=== PATIENT | female | born 1985 | race Caucasian/White ===

== ENCOUNTER 2016-11-24 08:44 | Emergency (ER) | payer MEDICAID ==
[~2016-11-24] VITALS: Ht 162.6 cm; Wt 85.0 kg
[2016-11-24 08:47] VITALS: Ht 162.6 cm; Wt 85.0 kg
--- NOTE | 2016-11-24 10:08 | ERD ---
ER Documentation Chief Complaint Date/Time DATE: 11/24/16 TIME: 10:07 Chief Complaint SPOTTING WITH LOWER ABD PAIN , 11 WEEKS PREG , LMP 08/30/16 HPI Patient is a 31-year-old female, approximately 11 weeks , , presents emergency department for vaginal spotting and lower abdominal pain. Patient states that her pain started yesterday. Patient states she started having vaginal spotting at 4 AM today. Patient describes the pain to be localized to her suprapubic region. Patient denies any fevers, chills, nausea, vomiting, dysuria, frequency, urgency or diarrhea. 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 No recent travel. No sick contacts. Patient states her last menstrual period was on 08-30-16. ROS All systems reviewed and are negative except as per history of present illness. Medications Home Meds Active Scripts Acetaminophen* (Tylophen*) 500 Mg Capsule, 1 CAP PO Q6H Y for PAIN AND OR ELEVATED TEMP, #20 CAP Prov:LEE RENDON PA-C 11/24/16 Allergies Allergies: Coded Allergies: No Known Allergy (Unverified , 11/24/16) PMhx/Soc Medical and Surgical Hx: pt denies Medical Hx, pt denies Surgical Hx Hx Alcohol Use: No Hx Substance Use: No Hx Tobacco Use: No Smoking Status: Never smoker Physical Exam Vitals Vital Signs Date Time Temp Pulse Resp B/P Pulse Ox O2 Delivery O2 Flow Rate FiO2 11/24/16 12:44 98.2 78 18 144/67 99 Room Air 11/24/16 08:47 98.3 58 18 142/66 99 Physical Exam GENERAL: Well-developed, well-nourished female. Appears in no acute distress. HEAD: Normocephalic, atraumatic. EYES: Pupils are equally reactive bilaterally. EOMs grossly intact. No conjunctival erythema. ENT: Moist mucous membranes. No uvula deviation. No kissing tonsils. NECK: Supple. No meningismus. Normal range of motion of the neck. LUNG: Clear to auscultation bilaterally. No rhonchi, wheezing, rales or coarse breath sounds. HEART: Regular rate and rhythm. No murmurs, rubs or gallops. ABDOMEN: Soft, nontender, and nondistended. Positive bowel sounds in all four quadrants. No rebound tenderness, no guarding. (-) McBurney's point tenderness. No CVA tenderness. BACK: No midline tenderness. EXTREMITIES: Equal pulses bilaterally. No peripheral clubbing, cyanosis or edema. No unilateral leg swelling. NEUROLOGIC: Alert and oriented. Moving all four extremities without any difficulty. Normal speech. Steady gait. SKIN: Normal color. Warm and dry. No rashes or lesions. Result Diagram: 11/24/16 1010 Results 24 hrs Laboratory Tests Test 11/24/16 10:10 11/24/16 11:33 11/24/16 11:38 White Blood Count 12.810^3/ul Red Blood Count 4.7410^6/ul Hemoglobin 13.2g/dl Hematocrit 40.3% Mean Corpuscular Volume 85.0fl Mean Corpuscular Hemoglobin 27.8pg Mean Corpuscular Hemoglobin Concent 32.8g/dl Red Cell Distribution Width 14.8% Platelet Count 47248^3/UL Mean Platelet Volume 9.7fl Neutrophils % 75.7% Lymphocytes % 18.2% Monocytes % 3.8% Eosinophils % 1.3% Basophils % 0.5% Nucleated Red Blood Cells % 0.0/100WBC Neutrophils # 9.710^3/ul Lymphocytes # 2.310^3/ul Monocytes # 0.510^3/ul Eosinophils # 0.210^3/ul Basophils # 0.110^3/ul Nucleated Red Blood Cells # 0.010^3/ul Beta HCG, Quantitative 8720.0mIU/ml Bedside Urine pH (LAB) 5.5 6.0 Bedside Urine Protein (LAB) Negative Negative Bedside Urine Glucose (UA) Negative Negative Bedside Urine Ketones (LAB) Negative Negative Bedside Urine Blood 3+ 2+ Bedside Urine Nitrite (LAB) Negative Negative Bedside Urine Leukocyte Esterase (L 1+ Trace Procedures/MDM ED COURSE: The patient was stable throughout ED course. I kept the patient and/or family informed of laboratory and diagnostic imaging results throughout the ED course. DIAGNOSTIC IMAGING: Read by radiologist. DIAGNOSTIC IMAGING REPORT Patient: TIKI RIVERS : 1985 Age: 31 Sex: F MR #: [id number] DOS: 11/24/16 0957 Ordering MD: LEE RENDON PA-C Location: [facility] Room/Bed: PROCEDURE: US OB. CLINICAL INDICATION: , vaginal bleeding. TECHNIQUE: Transabdominal and transvaginal views of the pelvis are available for review. COMPARISON: No prior studies are available for comparison. FINDINGS: The uterus measures 11.1 x 5.3 x 6.0 cm. There is an irregular shape intrauterine gestational sac with a pole. There is no cardiac activity identified. There is a small subchorionic hemorrhage. Mean gestational sac size is 1.69 cm consistent with 6-kzrk-7-day gestation. [place]-rump length is 0.29 cm consistent with a 1-xxon-9-day gestation. The right ovary is not visualized. The left ovary measures 2.4 x 1.3 x 1.4 cm. There is a 4.7 x 2.4 x 3.4 cm left paraovarian unilocular cyst. There is no free fluid in the cul-de- sac. IMPRESSION: 1. Irregular shaped intrauterine gestational sac with a pole without cardiac activity. This measures an average of 6 weeks 1 day plus or minus 3 days. There is a small subchorionic hemorrhage. The possibility of an embryonic demise should be entertained. Continued surveillance with serial quantitative beta HCGs and follow-up ultrasound is suggested. 2. 4.7 x 2.4 x 3.4 cm left paraovarian unilocular cyst. Note: A call report was made to Lee Kenney Pa-C (Philip) on 11/24/2016 10:43 :33 AM. RPTAT: AACC Physician Alexis Date Time Electronically viewed and signed by Physician Alexis on 11/24/2016 10: 45 JH/ CC: LEE RENDON PA-C PROCEDURES: None. MEDICAL DECISION MAKING: This is a 31-year-old female, G4, P3, presents emergency department for vaginal spotting and suprapubic pain 1 day. Vital signs were reviewed. Patient was afebrile. Patient was hemodynamically stable. Patient's white count was noted to be 12.8. Likely due to status. Quantitative b-HCG was 8720. Patient was noted to be O+. RhoGam was not given. Pelvic US showed 1. Irregular shaped intrauterine gestational sac with a pole without cardiac activity. This measures an average of 6 weeks 1 day plus or minus 3 days. There is a small subchorionic hemorrhage. The possibility of an embryonic demise should be entertained. Continued surveillance with serial quantitative beta HCGs and follow-up ultrasound is suggested. 2. 4.7 x 2.4 x 3.4 cm left paraovarian unilocular cyst. Given these findings, the patient's presentation is most consistent with threatened vs demise and subchoronic hematoma. I have a much lower clinical concern for ectopic , ruptured ectopic , molar , incomplete , complete , missed , placental abruption, placental previa, vasa previa, uterine rupture, anembyronic . I discussed patient's laboratory findings and ultrasound findings with her at length. Patient understands at this time unable to rule out demise. Patient will to return to the emergency department and/or follow with her OB/ PASS WORKER for repeat beta-hCG and 48 hours. DISCHARGE: At this time, patient is stable for discharge and outpatient management. Patient given a copy of all imaging and blood work obtained today. I had a conversation at length with the patient about the concerns of vaginal bleeding during the 1st trimester of . Patient and/or family understands that her vaginal bleeding can be a normal finding or a sign of miscarriage. I have instructed the patient to follow-up with her OBGYN in 1-2 days for further monitoring including a repeat b-HCG level. I have instructed the patient to promptly return to the ER at any time for any new or worsening symptoms including increased pain, nausea, vomiting, continued bleeding, weakness, syncope or fever. The patient and/or family expressed understanding of and agreement with this plan. All questions were answered. Home care instructions were provided. Departure Diagnosis: Primary Impression: Vaginal bleeding in patient at less than 20 weeks ges... Additional Impression: Subchorionic hematoma Condition: Stable Patient Instructions: Bleeding During Early Referrals: COMMUNITY CLINICS YOU HAVE RECEIVED A MEDICAL SCREENING EXAM AND THE RESULTS INDICATE THAT YOU DO NOT HAVE A CONDITION THAT REQUIRES URGENT TREATMENT IN THE EMERGENCY DEPARTMENT. FURTHER EVALUATION AND TREATMENT OF YOUR CONDITION CAN WAIT UNTIL YOU ARE SEEN IN YOUR DOCTORS OFFICE WITHIN THE NEXT 1-2 DAYS. IT IS YOUR RESPONSIBILITY TO MAKE AN APPOINTMENT FOR FOLOW-UP CARE. IF YOU HAVE A PRIMARY DOCTOR --you should call your primary doctor and schedule an appointment IF YOU DO NOT HAVE A PRIMARY DOCTOR YOU CAN CALL OUR PHYSICIAN REFERRAL HOTLINE AT IF YOU CAN NOT AFFORD TO SEE A PHYSICIAN YOU CAN CHOSE FROM THE FOLLOWING [facility] [address] [facility] [address] [facility] [facility] [address] [facility] [address] [facility]. [facility] [address] [facility] [facility] [address] [facility]. [facility] YOU HAVE RECEIVED A MEDICAL SCREENING EXAM AND THE RESULTS INDICATE THAT YOU DO NOT HAVE A CONDITION THAT REQUIRES URGENT TREATMENT IN THE EMERGENCY DEPARTMENT. FURTHER EVALUATION AND TREATMENT OF YOUR CONDITION CAN WAIT UNTIL YOU ARE SEEN IN YOUR DOCTORS OFFICE WITHIN THE NEXT 1-2 DAYS. IT IS YOUR RESPONSIBILITY TO MAKE AN APPOINTMENT FOR FOLOW-UP CARE. IF YOU HAVE A PRIMARY DOCTOR --you should call your primary doctor and schedule and appointment IF YOU DO NOT HAVE A PRIMARY DOCTOR YOU CAN CALL OUR PHYSICIAN REFERRAL HOTLINE AT . IF YOU CAN NOT AFFORD TO SEE A PHYSICIAN YOU CAN CHOSE FROM THE FOLLOWING [facility]: [facility] [address] [place] [address] [facility] [address] [place] [address] [facility] [address] [place] [address] [employer]ER GAUGER [employer]PR[place] [address] [facility] [address] [place] [address] OFFICE FAX , ELDA [address] [place] [address] [address] [facility] [address] [facility] [place] [address] [address] MANLEY, HESHMAT [address] [facility], [address], [facility] [address] [address] PATRICIA, [facility] [address] [address], [place] [address] [facility] [address] [place] [address] [facility], [facility] [address] [address] SKINNER, THEODORE [address] [facility] [address] [address] MCCRARY, YAEL [address] [facility]. [address], [facility] [address] [address] [place], [facility] [address] [place], [place] [id number] Additional Instructions: Call your primary care doctor/ OBGYN TOMORROW for an appointment during the next 1-2 days.See the doctor sooner or return here if your condition worsens before your appointment time. LEE RENDON PA-C November 24, 2016 10:08
[2016-11-24 10:28] LABS: ADD SCAN DIFF NO
[2016-11-24 10:37] LABS: BASOPHIL # 0.1 10^3/ul (0.0-0.1); BASOPHILS % 0.5 % (0.0-2.0); EOSINOPHILS # 0.2 10^3/ul (0.0-0.5); EOSINOPHILS % 1.3 % (0.0-7.0); HEMATOCRIT 40.3 % (37.0-47.0); HEMOGLOBIN 13.2 g/dl (12.0-16.0); LYMPHOCYTES # 2.3 10^3/ul (0.8-2.9); LYMPHOCYTES % 18.2 % (15.0-51.0); MEAN CORPUSCULAR HEMOGLOBIN 27.8 pg (29.0-33.0); MEAN CORPUSCULAR HGB CONC 32.8 g/dl (32.0-37.0); MEAN PLATELET VOLUME 9.7 fl (7.4-10.4); MONOCYTE # 0.5 10^3/ul (0.3-0.9); MONOCYTES % 3.8 % (0.0-11.0); NEUTROPHIL # 9.7 10^3/ul (1.6-7.5); NEUTROPHILS % 75.7 % (39.0-77.0); PLATELET COUNT 558 10^3/UL (140-415); RED BLOOD COUNT 4.74 10^6/ul (4.20-5.40); RED CELL DISTRIBUTION WIDTH 14.8 % (11.5-14.5); WHITE BLOOD COUNT 12.8 10^3/ul (4.8-10.8)
--- NOTE | 2016-11-24 10:45 | RADRPT ---
PROCEDURE: US OB. CLINICAL INDICATION: , vaginal bleeding. TECHNIQUE: Transabdominal and transvaginal views of the pelvis are available for review. COMPARISON: No prior studies are available for comparison. FINDINGS: The uterus measures 11.1 x 5.3 x 6.0 cm. There is an irregular shape intrauterine gestational sac w ith a pole. There is no cardiac activity identified. There is a small subchorionic hemorrhag e. Mean gestational sac size is 1.69 cm consistent with 4-ubnc-0-day gestation. [place]-rump length i s 0.29 cm consistent with a 4-xljm-1-day gestation. The right ovary is not visualized. The left ova ry measures 2.4 x 1.3 x 1.4 cm. There is a 4.7 x 2.4 x 3.4 cm left paraovarian unilocular cyst. The re is no free fluid in the cul-de-sac. IMPRESSION: 1. Irregular shaped intrauterine gestational sac with a pole without cardiac activity. This m easures an average of 6 weeks 1 day plus or minus 3 days. There is a small subchorionic hemorrhage. The possibility of an embryonic demise should be entertained. Continued surveillance with serial q uantitative beta HCGs and follow-up ultrasound is suggested. 2. 4.7 x 2.4 x 3.4 cm left paraovarian unilocular cyst. Note: A call report was made to Angel Kenney Pa-C (Philip) on 11/24/2016 10:43:33 AM. RPTAT: AACC Physician Alexis Date Time Electronically viewed and signed by Physician Alexis on 11/24/2016 10:45 /
[2016-11-24 11:31] LABS: URINE BLOOD (Dip) POC 3+ (NEGATIVE)
[2016-11-24 11:37] LABS: URINE BLOOD (Dip) POC 2+ (NEGATIVE)
[2016-11-24] MEDS ORDERED: ACET500C5 PO (12:03)
[2016-11-24 12:44] VITALS: BP 144/67; PULSE 78; RESP 18; TEMP 98.2
== END 2016-11-24 12:45 | disposition home or self-care (01) ==
LOC: FTE 08:44
DX: O20.9 Hemorrhage in early pregnancy, unspecified (principal); O36.8910 Maternal care for other specified fetal problems, first trimester, not applicable or unspecified; Z3A.11 11 weeks gestation of pregnancy
CPT/HCPCS: 36415; 76801; 76817; 81003; 84702; 85025; 86900; 86901; Z7502

== ENCOUNTER 2016-11-26 07:39 | Emergency (ER) | payer MEDICAID ==
[~2016-11-26] VITALS: Ht 157.5 cm; Wt 78.5 kg
[~2016-11-26 07:39] MED LIST: ACET500C5 PO
[2016-11-26 07:50] VITALS: Ht 157.5 cm; Wt 78.5 kg
[2016-11-26 08:31] LABS: ADD SCAN DIFF NO
--- NOTE | 2016-11-26 08:49 | RADRPT ---
PROCEDURE: US Pelvis/OB. CLINICAL INDICATION: vaginal bleeding TECHNIQUE: Multiple sonographic images of the pelvis were obtained utilizing a transabdominal and endovaginal technique. The images were reviewed on a PACS workstation. COMPARISON: 11/24/2016 FINDINGS: There is an irregular appearing cystic structure within the endometrium measuring 1.7 cm which would correspond to a calculated gestational age of 6 weeks and 3 days. No pole is identified. There is an abnormal yolk sac. The right ovary measures 2.9 x 1.5 cm. The left ovary measures 2.4 x 1.0 x 1.7 cm. There is a 5.1 x 2.8 cm left paraovarian cyst. No significant free fluid is present within the pelvis. RPTAT: AA IMPRESSION: Cystic structure seen within the endometrium, towards the lower uterine segment, suspicious for a no nviable . Close followup ultrasound and hCG is recommended. Large left paraovarian cyst. No significant interval change. .Brandin Mahoney MD, MD Date Time Electronically viewed and signed by .Brandin Mahoney MD, on 11/26/2016 08:48 .S/
[2016-11-26 08:50] LABS: BASOPHIL # 0.1 10^3/ul (0.0-0.1); BASOPHILS % 0.4 % (0.0-2.0); EOSINOPHILS # 0.2 10^3/ul (0.0-0.5); EOSINOPHILS % 1.3 % (0.0-7.0); HEMATOCRIT 39.2 % (37.0-47.0); HEMOGLOBIN 12.4 g/dl (12.0-16.0); LYMPHOCYTES # 2.7 10^3/ul (0.8-2.9); LYMPHOCYTES % 20.5 % (15.0-51.0); MEAN CORPUSCULAR HEMOGLOBIN 27.4 pg (29.0-33.0); MEAN CORPUSCULAR HGB CONC 31.6 g/dl (32.0-37.0); MEAN CORPUSCULAR VOLUME 86.5 fl (82.0-101.0); MEAN PLATELET VOLUME 9.8 fl (7.4-10.4); MONOCYTE # 0.3 10^3/ul (0.3-0.9); MONOCYTES % 2.6 % (0.0-11.0); NEUTROPHIL # 9.7 10^3/ul (1.6-7.5); NEUTROPHILS % 74.7 % (39.0-77.0); PLATELET COUNT 557 10^3/UL (140-415); RED BLOOD COUNT 4.53 10^6/ul (4.20-5.40); RED CELL DISTRIBUTION WIDTH 14.9 % (11.5-14.5)
[2016-11-26 08:57] LABS: ADD UMIC YES; URINE BILIRUBIN (Dip) NEGATIVE (NEGATIVE); URINE BLOOD (Dip) 3+ (NEGATIVE); URINE COLOR LT. YELLOW (YELLOW); URINE GLUCOSE (Dip) NEGATIVE (NEGATIVE); URINE KETONES (Dip) NEGATIVE (NEGATIVE); URINE LEUKOCYTE ESTERASE (Dip) 1+ (NEGATIVE); URINE NITRITE (Dip) NEGATIVE (NEGATIVE); URINE TOTAL PROTEIN (Dip) NEGATIVE (NEGATIVE); URINE UROBILINOGEN (Dip) 0.2 E.U./dL (0.1-1.0)
[2016-11-26 09:14] LABS: BACTERIA,URINE OCCASIONAL
--- NOTE | 2016-11-26 09:53 | ERD ---
ER Documentation Chief Complaint Date/Time DATE: 11/26/16 TIME: 09:51 Chief Complaint [facility] H[facility] This is a 31-year-old female presents to the ER for continued vaginal bleeding. Patient was seen here 2 days ago and was told to recheck her labs today. a 0. Patient denies any pelvic pains denies any urinary frequency or dysuria. She denies any vaginal discharge. Her last normal menstrual period was on August 30, 2016. ROS = 12 point review of systems was done, all negative except per HPI. Medications Home Meds Active Scripts Acetaminophen* (Tylophen*) 500 Mg Capsule, 1 CAP PO Q6H Y for PAIN AND OR ELEVATED TEMP, #20 CAP Prov:LEE RENDON PA-C 11/24/16 Allergies Allergies: Coded Allergies: No Known Allergy (Unverified , 11/24/16) PMhx/Soc Medical and Surgical Hx: pt denies Medical Hx, pt denies Surgical Hx History of Surgery: No Anesthesia Reaction: No Hx Neurological Disorder: No Hx Respiratory Disorders: No Hx Cardiac Disorders: No Hx Psychiatric Problems: No Hx Miscellaneous Medical Probl: No Hx Alcohol Use: No Hx Substance Use: No Hx Tobacco Use: No Physical Exam Vitals Vital Signs Date Time Temp Pulse Resp B/P Pulse Ox O2 Delivery O2 Flow Rate FiO2 11/26/16 07:50 98.1 58 18 118/58 99 Physical Exam GENERAL: The patient is well developed and appropriate for usual state of health , in no apparent distress. HEENT: Atraumatic. CHEST: Clear to auscultation bilaterally. There are no rales, wheezes or rhonchi. HEART: Regular rate and rhythm. No murmurs, clicks, rubs or gallops. ABDOMEN: Soft, nontender and nondistended. Good bowel sounds. No rebound or guarding. No gross peritonitis. No gross organomegaly or masses. No Mendoza sign or McBurney point tenderness. BACK: No midline or flank tenderness. SKIN: There is no apparent rash or petechia. The skin is warm and dry. Result Diagram: 11/26/16 0800 Results 24 hrs Laboratory Tests Test 11/26/16 08:00 White Blood Count 13.010^3/ul Red Blood Count 4.5310^6/ul Hemoglobin 12.4g/dl Hematocrit 39.2% Mean Corpuscular Volume 86.5fl Mean Corpuscular Hemoglobin 27.4pg Mean Corpuscular Hemoglobin Concent 31.6g/dl Red Cell Distribution Width 14.9% Platelet Count 63241^3/UL Mean Platelet Volume 9.8fl Neutrophils % 74.7% Lymphocytes % 20.5% Monocytes % 2.6% Eosinophils % 1.3% Basophils % 0.4% Nucleated Red Blood Cells % 0.0/100WBC Neutrophils # 9.710^3/ul Lymphocytes # 2.710^3/ul Monocytes # 0.310^3/ul Eosinophils # 0.210^3/ul Basophils # 0.110^3/ul Nucleated Red Blood Cells # 0.010^3/ul Urine Color LT. YELLOW Urine Clarity CLEAR Urine pH 6.0 Urine Specific [place] 1.025 Urine Ketones NEGATIVE Urine Nitrite NEGATIVE Urine Bilirubin NEGATIVE Urine Urobilinogen 0.2 E.U./dL Urine Leukocyte Esterase 1+ Urine Microscopic RBC 10-25/HPF Urine Microscopic WBC 2-5/HPF Urine Epithelial Cells OCCASIONAL Urine Bacteria OCCASIONAL Urine Hemoglobin 3+ Urine Glucose NEGATIVE% Urine Total Protein NEGATIVE Beta HCG, Quantitative 6638.3mIU/ml Procedures/MDM Differential diagnosis: Threatened , missed , incomplete , ectopic , molar , UTI, pyelonephritis. Unfortunately patient quantitative hCG is downtrending, this is likely related to failed . At this time patient is hemodynamically stable, at the last visit patient's blood type was tested and she was positive, RhoGam is not needed. Suspicion for urinary tract infection is low. Suspicion for ectopic is low. Patient is to follow-up with her primary care doctor within 1 -2 days or return to ER sooner if symptoms worsen. My medical decision making was shared with the patient she understands and agrees with plan. Departure Diagnosis: Primary Impression: Vaginal bleeding in patient at less than 20 weeks ges... Condition: Stable Patient Instructions: Understanding Miscarriage: Recovery, Miscarriage Referrals: TEMITOPE MEDELLIN (PCP) Additional Instructions: Llame al doctor MAANA y kathleen alyssa FRANCOIS PARA DENTRO DE 1-2 GARCIA.Dgale a la secretaria que nosotros le instruimos hacer esta francois.Avise o llame si gannon condicin se empeora antes de la francois. Regresa aqui si peor o no mejor. EHIDI,RAFFAELE C November 26, 2016 09:53
== END 2016-11-26 10:11 | disposition home or self-care (01) ==
LOC: FTE 07:39
DX: O20.9 Hemorrhage in early pregnancy, unspecified (principal); Z3A.01 Less than 8 weeks gestation of pregnancy
CPT/HCPCS: 36415; 76801; 76817; 81001; 84702; 85025; Z7502; 81003